=== PATIENT | female | born 1940 | race Caucasian/White ===

== ENCOUNTER 2019-04-26 09:11 | Inpatient (IN) ==
[2019-04-26] MEDS ORDERED: Aspirin 81 MG TAB.CHEW PO ONE (09:14)
[2019-04-26] MEDS ORDERED: Nitroglycerin 0.4 MG TAB.SUBL SL PRN (09:14)
[2019-04-26 10:45] LABS: Basophils % 0.6 %; Eosinophils # 0.2 K/mcL (0.0-0.6); Eosinophils % 2.6 %; Hematocrit 46.5 % (35.3-44.9); Hemoglobin 15.3 g/dL (11.5-15.4); Immature Granulocytes % 0.3 % (0-4); Lymphocytes # 1.3 K/mcL (0.6-4.6); Lymphocytes % 19.7 %; Mean Corpuscular HGB Conc 32.9 g/dL (31.6-35.5); Mean Corpuscular Hemoglobin 32.9 pg (28.0-33.3); Mean Platelet Volume 9.7 fL (9.4-12.4); Monocytes # 0.7 K/mcL (0.0-1.3); Monocytes % 10.7 %; Neutrophils # 4.5 K/mcL (1.6-8.9); Platelet Count 219 K/mcL (140-400); Red Blood Count 4.65 M/mcL (3.82-4.97); Red Cell Distribution Width 13.2 % (11.5-14.5); Segmented Neutrophils % 66.1 %; White Blood Count 6.8 K/mcL (4.3-11.1)
[2019-04-26 10:48] LABS: Prothrombin Time 11.1 Seconds (9.4-12.1)
[2019-04-26 10:51] LABS: Activated Partial Thrombo Time 31.2 Seconds (26.0-36.0)
[2019-04-26 10:59] LABS: BUN/Creatinine Ratio 15 (6-26); Blood Urea Nitrogen 15 mg/dL (8-23); Calcium 9.4 mg/dL (8.6-10.3); Carbon Dioxide 27 mEq/L (23-29); Chloride 105 mEq/L (98-107); Glucose 90 mg/dL (70-105); Osmolality,Calculated 290 (280-300); Sodium 140 mEq/L (136-145); eGFR For African Americans > 60 (> 60); eGFR For Non-African Americans 52 (> 60)
[2019-04-26 11:06] LABS: Troponin I 0.09 ng/mL (< 0.04)
[2019-04-26] MEDS ORDERED: Naloxone 0.4 MG/ML INJ IVP PRN (14:31)
[2019-04-26] MEDS ORDERED: *HR* Heparin 5,000 UNIT/ML VIAL IVP ONE (15:03)
[2019-04-26] MEDS ORDERED: *HR* Heparin 5,000 UNIT/ML VIAL IVP PRN ×2 (15:03)
[2019-04-26] MEDS ORDERED: Heparin 25,000 UNIT/250 ML D5W 25,000 UNIT/250 ML IV.SOLN IVC SCH (15:15)
[2019-04-26 16:01] LABS: Hematocrit 42.1 % (35.3-44.9); Hemoglobin 14.1 g/dL (11.5-15.4); Mean Corpuscular HGB Conc 33.5 g/dL (31.6-35.5); Mean Corpuscular Hemoglobin 32.2 pg (28.0-33.3); Mean Corpuscular Volume 96.1 fL (83.0-100.0); Mean Platelet Volume 9.8 fL (9.4-12.4); Platelet Count 207 K/mcL (140-400); Red Blood Count 4.38 M/mcL (3.82-4.97); Red Cell Distribution Width 13.1 % (11.5-14.5)
[2019-04-26 16:07] LABS: Prothrombin Time 11.3 Seconds (9.4-12.1)
[2019-04-26] MEDS ORDERED: *HR* Heparin 5,000 UNIT/ML VIAL SQ SCH (18:00)
[2019-04-26] MEDS ORDERED: Perflutren Lipid Microsphere 1.3 ML in 0.9 % Sodium Chloride 8.7 ML IVP ONE (19:00)
[2019-04-27 02:16] LABS: Hematocrit 42.6 % (35.3-44.9); Hemoglobin 14.3 g/dL (11.5-15.4); Mean Corpuscular HGB Conc 33.6 g/dL (31.6-35.5); Mean Corpuscular Hemoglobin 33.3 pg (28.0-33.3); Mean Corpuscular Volume 99.1 fL (83.0-100.0); Mean Platelet Volume 9.9 fL (9.4-12.4); Platelet Count 202 K/mcL (140-400); Red Cell Distribution Width 13.2 % (11.5-14.5); White Blood Count 6.5 K/mcL (4.3-11.1)
[2019-04-27 02:38] LABS: BUN/Creatinine Ratio 16 (6-26); Blood Urea Nitrogen 15 mg/dL (8-23); Calcium 8.8 mg/dL (8.6-10.3); Carbon Dioxide 26 mEq/L (23-29); Chloride 106 mEq/L (98-107); Glucose 97 mg/dL (70-105); Osmolality,Calculated 293 (280-300); Sodium 141 mEq/L (136-145); eGFR For African Americans > 60 (> 60); eGFR For Non-African Americans 59 (> 60)
[2019-04-27] MEDS ORDERED: Aspirin Enteric Coated 81 MG Tablet PO SCH (09:00)
[2019-04-27] MEDS ORDERED: 0.9 % Sodium Chloride 2,000 ML ONE (09:57)
[2019-04-27] MEDS ORDERED: Nitroglycerin 1,000 MCG/10 ML VIAL IV ONE (09:57)
[2019-04-27] MEDS ORDERED: *HR* Heparin 10,000 UNIT/10 ML VIAL ONE (09:57)
[2019-04-27] MEDS ORDERED: ISOVUE-370 200 ML INFUS..BTL ONE (09:57)
[2019-04-27] MEDS ORDERED: Heparin 1,000 UNITS/500 mL 500 ML ONE (09:57)
[2019-04-27] MEDS ORDERED: Verapamil 5 MG/2 ML VIAL ONE (10:07)
[2019-04-27] MEDS ORDERED: *HR* Midazolam HCl 2 MG/2 ML VIAL ONE (10:17)
[2019-04-27] MEDS ORDERED: Acetaminophen 325 MG TABLET PO PRN (11:00)
[2019-04-27] MEDS ORDERED: Ondansetron 4 MG/2 ML VIAL IVP PRN (11:36)
[2019-04-27] MEDS ORDERED: *HR* Heparin 5,000 UNIT/ML VIAL IVP PRN ×2 (11:54)
[2019-04-27] MEDS: Heparin 25,000 UNIT/250 ML D5W 25,000 UNIT/250 ML IV.SOLN IVC SCH (12:45)
[2019-04-27 13:31] LABS: Hematocrit 46.1 % (35.3-44.9); Hemoglobin 15.3 g/dL (11.5-15.4); Mean Corpuscular HGB Conc 33.2 g/dL (31.6-35.5); Mean Corpuscular Hemoglobin 33.3 pg (28.0-33.3); Mean Corpuscular Volume 100.2 fL (83.0-100.0); Mean Platelet Volume 10.2 fL (9.4-12.4); Platelet Count 203 K/mcL (140-400); Red Cell Distribution Width 13.1 % (11.5-14.5); White Blood Count 8.2 K/mcL (4.3-11.1)
[2019-04-27 13:43] LABS: Heparin anti-factor XA UFH 0.1 IU/mL (0.30-0.70); Prothrombin Time 11.7 Seconds (9.4-12.1)
[2019-04-27] MEDS ORDERED: Warfarin perPT PO PRN (18:00)
[2019-04-27] MEDS ORDERED: *HR* Warfarin 3 MG TABLET PO ONE (18:00)
[2019-04-28 04:53] LABS: Basophils # 0.1 K/mcL (0.0-0.2); Basophils % 0.7 %; Eosinophils # 0.3 K/mcL (0.0-0.6); Eosinophils % 3.4 %; Hematocrit 43.6 % (35.3-44.9); Hemoglobin 14.7 g/dL (11.5-15.4); Immature Granulocytes % 0.3 % (0-4); Lymphocytes # 1.6 K/mcL (0.6-4.6); Lymphocytes % 18.7 %; Mean Corpuscular HGB Conc 33.7 g/dL (31.6-35.5); Mean Corpuscular Hemoglobin 32.7 pg (28.0-33.3); Mean Corpuscular Volume 96.9 fL (83.0-100.0); Mean Platelet Volume 10.2 fL (9.4-12.4); Monocytes # 0.9 K/mcL (0.0-1.3); Monocytes % 9.9 %; Neutrophils # 5.8 K/mcL (1.6-8.9); Platelet Count 207 K/mcL (140-400); Red Cell Distribution Width 13.2 % (11.5-14.5); White Blood Count 8.6 K/mcL (4.3-11.1)
[2019-04-28 04:57] LABS: Prothrombin Time 11.9 Seconds (9.4-12.1)
[2019-04-28 05:11] LABS: BUN/Creatinine Ratio 14 (6-26); Blood Urea Nitrogen 13 mg/dL (8-23); Carbon Dioxide 24 mEq/L (23-29); Chloride 106 mEq/L (98-107); Glucose 103 mg/dL (70-105); Osmolality,Calculated 292 (280-300); Sodium 141 mEq/L (136-145); eGFR For African Americans > 60 (> 60); eGFR For Non-African Americans 57 (> 60)
[2019-04-28] MEDS: Heparin 25,000 UNIT/250 ML D5W 25,000 UNIT/250 ML IV.SOLN IVC SCH (05:53)
[2019-04-28] MEDS: Spironolactone 25 MG TABLET PO SCH (09:16)
[2019-04-28] MEDS: Metoprolol XL (24 HR) Succ 25 MG TAB.ER.24H PO SCH (09:16)
[2019-04-28] MEDS: Aspirin 81 MG TAB.CHEW PO SCH (09:17)
[2019-04-28] MEDS ORDERED: *HR* Warfarin 3 MG TABLET PO ONE (18:00)
[2019-04-29 02:05] LABS: White Blood Count 7.3 K/mcL (4.3-11.1)
[2019-04-29 02:06] LABS: Basophils % 0.6 %; Eosinophils # 0.4 K/mcL (0.0-0.6); Eosinophils % 4.8 %; Hematocrit 42.5 % (35.3-44.9); Hemoglobin 14.4 g/dL (11.5-15.4); Immature Granulocytes % 0.3 % (0-4); Lymphocytes # 1.5 K/mcL (0.6-4.6); Lymphocytes % 21.2 %; Mean Corpuscular HGB Conc 33.9 g/dL (31.6-35.5); Mean Corpuscular Hemoglobin 32.7 pg (28.0-33.3); Mean Corpuscular Volume 96.6 fL (83.0-100.0); Mean Platelet Volume 10.3 fL (9.4-12.4); Monocytes # 0.8 K/mcL (0.0-1.3); Neutrophils # 4.5 K/mcL (1.6-8.9); Platelet Count 215 K/mcL (140-400); Red Cell Distribution Width 13.3 % (11.5-14.5); Segmented Neutrophils % 62.1 %
[2019-04-29 02:10] LABS: INR 1.1
[2019-04-29 02:17] LABS: BUN/Creatinine Ratio 15 (6-26); Blood Urea Nitrogen 15 mg/dL (8-23); Calcium 8.8 mg/dL (8.6-10.3); Carbon Dioxide 26 mEq/L (23-29); Chloride 108 mEq/L (98-107); Glucose 112 mg/dL (70-105); Osmolality,Calculated 292 (280-300); Sodium 140 mEq/L (136-145); eGFR For African Americans > 60 (> 60); eGFR For Non-African Americans 55 (> 60)
[2019-04-29] MEDS: Metoprolol XL (24 HR) Succ 25 MG TAB.ER.24H PO SCH (09:03)
[2019-04-29] MEDS: Spironolactone 25 MG TABLET PO SCH (09:03)
[2019-04-29] MEDS: Aspirin 81 MG TAB.CHEW PO SCH (09:04)
[2019-04-29] MEDS: Heparin 25,000 UNIT/250 ML D5W 25,000 UNIT/250 ML IV.SOLN IVC SCH (12:56)
[2019-04-29 15:51] LABS: Bilirubin,Urine Negative (Negative); Blood,Urine Trace (Negative); Clarity,Urine Cloudy (Clear); Color,Urine Yellow (Yellow); Glucose,Urine (UA) Normal (Normal); Ketones,Urine Negative (Negative); Leukocyte Esterase,Urine Large (Negative); Nitrite,Urine Negative (Negative); Protein,Urine Negative (Neg-Trace); Specific Gravity,Urine 1.007 (1.010-1.025); Urobilinogen,Urine Normal (Normal)
[2019-04-29 15:53] LABS: Hyaline Casts,Urine None Seen per lpf (None-Few); RBC,Urine 0-3 per hpf (0-3); WBC,Urine 50-100 per hpf (0-3)
[2019-04-29 16:07] LABS: Bacteria,Urine Few per hpf (None-Few)
[2019-04-29 16:08] LABS: Squamous Epithelial Cell,Urine Moderate per lpf (None-Few)
[2019-04-29] MEDS ORDERED: *HR* Warfarin 5 MG TABLET PO ONE (18:00)
[2019-04-30] MEDS: cefTRIAXone 1,000 MG in Water for inj. (sterile) 10 ML IVP SCH ×2 (00:16→23:31)
[2019-04-30 02:48] LABS: INR 1.4; Prothrombin Time 15.8 Seconds (9.4-12.1)
[2019-04-30] MEDS ORDERED: Temazepam 15 MG CAPSULE PO STA (04:23)
[2019-04-30] MEDS: Spironolactone 25 MG TABLET PO SCH (07:32)
[2019-04-30] MEDS: Metoprolol XL (24 HR) Succ 25 MG TAB.ER.24H PO SCH (07:32)
[2019-04-30] MEDS: Aspirin 81 MG TAB.CHEW PO SCH (07:32)
[2019-04-30] MEDS ORDERED: *HR* Warfarin 5 MG TABLET PO ONE (18:00)
[2019-04-30] MEDS ORDERED: Melatonin 3 MG TABLET PO SCH (21:00)
[2019-04-30] MEDS: Heparin 25,000 UNIT/250 ML D5W 25,000 UNIT/250 ML IV.SOLN IVC SCH (21:45)
[2019-05-01 03:33] LABS: Basophils # 0.1 K/mcL (0.0-0.2); Basophils % 0.8 %; Eosinophils # 0.4 K/mcL (0.0-0.6); Eosinophils % 5.1 %; Hematocrit 41.5 % (35.3-44.9); Hemoglobin 14.4 g/dL (11.5-15.4); Immature Granulocytes % 0.4 % (0-4); Lymphocytes # 1.8 K/mcL (0.6-4.6); Lymphocytes % 25.1 %; Mean Corpuscular HGB Conc 34.7 g/dL (31.6-35.5); Mean Corpuscular Hemoglobin 33.1 pg (28.0-33.3); Mean Corpuscular Volume 95.4 fL (83.0-100.0); Mean Platelet Volume 10.4 fL (9.4-12.4); Monocytes # 0.8 K/mcL (0.0-1.3); Monocytes % 10.8 %; Neutrophils # 4.2 K/mcL (1.6-8.9); Platelet Count 217 K/mcL (140-400); Red Blood Count 4.35 M/mcL (3.82-4.97); Red Cell Distribution Width 13.4 % (11.5-14.5); Segmented Neutrophils % 57.8 %; White Blood Count 7.2 K/mcL (4.3-11.1)
[2019-05-01 03:43] LABS: INR 2.4; Prothrombin Time 27.7 Seconds (9.4-12.1)
[2019-05-01] MEDS: Spironolactone 25 MG TABLET PO SCH (08:29)
[2019-05-01] MEDS: Aspirin 81 MG TAB.CHEW PO SCH (08:29)
[2019-05-01] MEDS: Metoprolol XL (24 HR) Succ 25 MG TAB.ER.24H PO SCH (08:29)
[2019-05-01 08:37] LABS: INR 2.7; Prothrombin Time 31.2 Seconds (9.4-12.1)
[2019-05-01 12:39] VITALS: BP 112/61
[2019-05-01] MEDS ORDERED: *HR* Warfarin 2 MG TABLET PO ONE (18:00)
== END 2019-05-01 13:59 | disposition home or self-care (01) | DRG 246 ==
LOC: SUATTDRO → 3ANU 09:11 → EMEROOARM 09:11 → SUATTDRO 12:16 → 3ANU 12:39
PROVIDERS: ADMIT Family Medicine; ATTEND Internal Medicine